=== PATIENT | female | born 1950 | race Two or more races ===

== ENCOUNTER 2018-03-10 09:20 | Outpatient (CLI) | payer OTHER | END 2018-03-10 09:28 | disposition home or self-care (01) | LOC: SONOGRAMA 09:20 | DX: E04.1 Nontoxic single thyroid nodule (principal) ==

== ENCOUNTER 2021-06-29 09:45 | Outpatient (CLI) | payer OTHER | END 2021-06-29 09:50 | disposition home or self-care (01) | LOC: SONOGRAMA 09:45 | PROVIDERS: ATTEND Pathology Anatomic Pathology & Clinical Pathology | DX: E04.2 Nontoxic multinodular goiter (principal); E04.8 Other specified nontoxic goiter; E07.89 Other specified disorders of thyroid; E04.1 Nontoxic single thyroid nodule; D34 Benign neoplasm of thyroid gland ==